=== PATIENT | female | born 1985 | race Caucasian/White ===

== ENCOUNTER 2017-08-01 16:02 | Emergency (ER) | payer MEDICAID ==
[~2017-08-01] VITALS: Ht 172.7 cm; Wt 105.6 kg
[2017-08-01 16:19] VITALS: BP 100/47
[2017-08-01] MEDS ORDERED: HYDROmorphone 1 mg/ml syringe IM ONE (17:05)
[2017-08-01] MEDS ORDERED: cyclobenzaprine 10mg tablet PO ONE (17:05)
[2017-08-01] MEDS ORDERED: CYCL-1 PO (17:25)
[2017-08-01] MEDS ORDERED: HYDR-565 PO (17:25)
== END 2017-08-01 17:36 | disposition home or self-care (01) ==
LOC: ER 16:02
DX: S39.012A Strain of muscle, fascia and tendon of lower back, initial encounter (principal); G89.29 Other chronic pain; F17.200 Nicotine dependence, unspecified, uncomplicated; Z56.0 Unemployment, unspecified; Z79.899 Other long term (current) drug therapy; X58.XXXA Exposure to other specified factors, initial encounter; Y93.89 Activity, other specified; Y92.89 Other specified places as the place of occurrence of the external cause; Y99.8 Other external cause status
CPT/HCPCS: 96372; 99283; J1170

== ENCOUNTER 2019-02-07 15:31 | Emergency (ER) | payer MEDICAID ==
[~2019-02-07] VITALS: Ht 172.7 cm; Wt 100.0 kg
[~2019-02-07 15:31] MED LIST: CYCL-1 PO
[2019-02-07 15:43] VITALS: BP 146/106
[2019-02-07] MEDS ORDERED: AMOX-580 PO (16:28)
[2019-02-07] MEDS ORDERED: CHLO473M3 PO (16:28)
== END 2019-02-07 16:43 | disposition home or self-care (01) ==
LOC: ER 15:31
DX: K02.9 Dental caries, unspecified (principal); K03.81 Cracked tooth; G89.29 Other chronic pain; Z56.0 Unemployment, unspecified; Z79.899 Other long term (current) drug therapy
CPT/HCPCS: 99283

== ENCOUNTER 2023-09-21 15:25 | Emergency (ER) | payer MEDICAID ==
[~2023-09-21] VITALS: Ht 172.7 cm; Wt 114.2 kg
[~2023-09-21 15:25] MED LIST changes: +CHLO473M3 PO
[2023-09-21 15:30] VITALS: BP 127/95; PULSE 91; RESP 16; TEMP 98; O2SAT 99
== END 2023-09-21 17:29 | disposition left against medical advice (07) ==
LOC: ER 15:26
DX: S70.12XA Contusion of left thigh, initial encounter (principal); Z53.21 Procedure and treatment not carried out due to patient leaving prior to being seen by health care provider; W18.39XA Other fall on same level, initial encounter; Y93.89 Activity, other specified; Y92.89 Other specified places as the place of occurrence of the external cause; Y99.8 Other external cause status
CPT/HCPCS: 99281